=== PATIENT | male | born 1995 | race African-American/Black ===

== ENCOUNTER 2017-12-18 09:57 | Emergency (ER) | payer OTHER, SELFPAY ==
[2017-12-18 10:11] VITALS: BP 159/85; PULSE 87; RESP 16; TEMP 37; O2SAT 98; BMI 30.3
[2017-12-18] MEDS: PROPARACAINE 0.5% OPHTH SOL 1 DROPS EYE-BOTH (10:24)
[2017-12-18 11:40] VITALS: BP 140/81; PULSE 78; RESP 16; TEMP 36.7; O2SAT 99
--- NOTE | 2017-12-18 12:48 | ED.EYEPROB ---
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 Patient reports that he had a gradual onset discomfort yesterday that he attributed to his contact lenses, the patient changed out his lenses without improvement, he then went to bed and hope that his symptoms will resolve, upon awakening they had worsened and he presented to the emergency department for further evaluation. Patient denies similar prior symptoms. Patient denies neck stiffness, fever, chills, trauma, changes in hearing. Denies a history of glaucoma. Denies recent eye surgery. 2-3 M/S/F/Soc Hx. M/S/F/SocHx notable for: please see HPI; remainder reviewed with patient and in chart. ROS: Negative constitutional, eye, cardiovascular, pulmonary, GI, , MSK, skin, neurologic, psychiatric, endocrine unless noted in the HPI. Exam Gen: Pleasant, non-toxic appearing, resting comfortably. Head: Normocephalic, atraumatic. Eyes: Extraocular Structures: * OS without proptosis, periorbital erythema, swelling, warmth, or tenderness. Lids without edema, erythema, swelling. Nasolacrimal duct without swelling, warmth, erythema, or tenderness. Visual acuity baseline per patient. EOMI without pain or nystagmus. * OD without proptosis, periorbital erythema, swelling, warmth, or tenderness. Lids without edema, erythema, swelling. Nasolacrimal duct without swelling, warmth, erythema, or tenderness. Visual acuity baseline per patient. EOMI without pain or nystagmus. Ocular Structures: OS * PERRLA (4 to 2 mm) with pain on direct but not consensual photostimulation. * EOMI without pain or nystagmus. * Vision: baseline per patient. * Slit lamp exam: lid everted and no foreign bodies or areas of swelling were seen. * No conjunctival injection, hemorrhage, chemosis, or discharge. No grossly visible hypopyon or hyphema. No anterior chamber cell or flare. * Patient had mild relief of pain with application of topical anesthetic. Fluorescein was applied without focal update appreciated, negative Siedel's sign. * Intraocular pressure 14 mmHg. OD * PERRLA (4 to 2 mm) without pain on both afferent and efferent light stimulation. * EOMI without pain or nystagmus. * Vision: baseline per patient, moura full to confrontation. * Slit lamp exam: lid everted and no foreign bodies or areas of swelling were seen. * No conjunctival injection, hemorrhage, chemosis, or discharge. No grossly visible hypopyon or hyphema. No anterior chamber cell or flare. * Fluorescein was applied without focal update appreciated, negative Siedel's sign. * Intraocular pressure 15 mmHg. Mouth: oropharynx visually normal Nose: Nares without crusting or discharge. Neck: Neck supple Resp: Clear to auscultation bilaterally. Normal work of breathing without accessory muscle usage. Card: Regular rate and rhythm with no murmurs, rubs or gallops. Extremities warm and well perfused. GI: Nondistended. : Deferred MSK: No visible deformities, strength and tone visually normal. Skin: Normal color with no visible lesions. Neuro: Gen AO x 3, no facial asymmetry, no gaze preference, no slurring of speech. CN II-III: pupils equal and reactive (3->2mm bilaterally); III, IV, : EOMI, V1-V3: sensation to touch bilaterally intact; VII: no facial asymmetry (frown / smile); VIII: no nystagmus; X: phonation intact, uvula midline; XI: trapezius 5/5 bilaterally, XII: tongue midline. Cerebellar: no pronator drift, [id number] testing without dysmetria bilaterally, heel to duvall without dysmetria bilaterally. Heme: Deferred MDM Previous chart, nursing note, and vitals reviewed. 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 Patient reports that he had a gradual onset discomfort yesterday that he attributed to his contact lenses, the patient changed out his lenses without improvement, he then went to bed and hope that his symptoms will resolve, upon awakening they had worsened and he presented to the emergency department for further evaluation. DDx: corneal abrasion, corneal foreign body, keratitis sicca, corneal ulcer, corneal perforation, traumatic iritis, uveitis, keratitis. Evaluation: history strongly suggestive of uveitis worse keratitis, exam without evidence of glaucoma, corneal abrasion, HSV or VZV keratitis. Discuss case with Dr. Heredia, ophthalmology, patient referred directly to ophthalmology clinic for further care. Impression: left eye pain (please reference below for remainder of encounter information) Related Data Home Medications Medication Instructions Recorded Confirmed No Known Home Medications 12/18/17 12/18/17 Allergies Allergy/AdvReac Type Severity Reaction Status Date / Time No Known Drug Allergies Allergy Verified 12/18/17 10:23 [facility] [place] Social History Smoking Status: Never smoker Exam Initial Vital Signs Initial Vital Signs: Vital Signs Temperature 98.6 F 12/18/17 10:11 Pulse Rate 87 12/18/17 10:11 Respiratory Rate 16 12/18/17 10:11 Blood Pressure 159/85 H 12/18/17 10:11 Pulse Oximetry 98 12/18/17 10:11 Course Orders Ordered: Discontinued Medications Proparacaine HCl (Parcaine 0.5% Ophth Blossom) 1 drops EYE-BOTH NOW ONE Stop: 12/18/17 10:18 Last Admin: 12/18/17 10:24 Dose: 1 drop Vital Signs - 8 hr 12/18/17 10:11 12/18/17 11:40 Temperature 98.6 F 98.0 F Pulse Rate 87 78 Respiratory Rate 16 16 Blood Pressure 159/85 H Blood Pressure [Left Arm] 140/81 H Pulse Oximetry 98 99 Discharge Plan Departure Prescriptions: No Action No Known Home Medications RF: 0
== END 2017-12-18 12:56 | disposition home or self-care (01) ==
PROVIDERS: Emergency Provider Emergency Medicine
DX: H57.12 Ocular pain, left eye (principal)
CPT/HCPCS: 87070; 87205; 99282; 99283

== ENCOUNTER → 2017-12-18 14:16 | Outpatient (CLI) | payer OTHER, SELFPAY | PROVIDERS: Visit Provider Ophthalmology | DX: H16.8 Other keratitis (principal) | CPT/HCPCS: 87070; 87205 ==